=== PATIENT | female | born 1985 | race African-American/Black ===

== ENCOUNTER 2025-04-25 23:20 | Emergency (ER) | payer OTHER, MEDICAID ==
[~2025-04-25] VITALS: Ht 170.2 cm; Wt 69.0 kg
[2025-04-25 23:27] VITALS: TEMP 36.8; O2SAT 99
[2025-04-26 01:09] VITALS: TEMP 98.2
[2025-04-26] MEDS: ACETAMINOPHEN 325MG TABLET PO ONE (01:09)
[2025-04-26 02:00] LABS: TROPONIN I HIGH SENSITIVITY < 4 ng/L (3.0-34)
[2025-04-26 02:14] LABS: HCG SCREEN NEGATIVE
[2025-04-26] MEDS ORDERED: IBUP-1455 MT (02:26)
[2025-04-26] MEDS ORDERED: BACL-141 MT (02:26)
[2025-04-26 02:36] VITALS: BP 113/72; PULSE 83; RESP 14; O2SAT 95
[2025-04-26] MEDS: HYDROCODONE/ACETAMINOPHEN 5/325MG TABLET PO SCH (03:22)
== END 2025-04-26 03:49 | disposition home or self-care (01) ==
LOC: ER 23:20
DX: S13.4XXA Sprain of ligaments of cervical spine, initial encounter (principal); S80.12XA Contusion of left lower leg, initial encounter; S80.11XA Contusion of right lower leg, initial encounter; Z88.0 Allergy status to penicillin; Z91.018 Allergy to other foods; V89.2XXA Person injured in unspecified motor-vehicle accident, traffic, initial encounter; Y92.410 Unspecified street and highway as the place of occurrence of the external cause; Y93.89 Activity, other specified; Y99.8 Other external cause status
CPT/HCPCS: 36415; 71045; 73590; 84484; 84703; 93005; 99285

== ENCOUNTER 2025-05-05 20:51 | Emergency (ER) | payer OTHER, MEDICAID ==
[~2025-05-05] VITALS: Ht 162.6 cm; Wt 50.0 kg
[~2025-05-05 20:51] MED LIST: BACL-141 MT; IBUP-1455 MT
[2025-05-05 20:57] VITALS: O2SAT 100
[2025-05-05] MEDS: KETOROLAC 15MG/ML VIAL IM ONE (23:59)
[2025-05-05] MEDS: HYDROCODONE/ACETAMINOPHEN 7.5/325MG TABLET PO ONE (23:59)
[2025-05-05] MEDS: LIDOCAINE 5% PATCH TOP SCH (23:59)
[2025-05-06] MEDS ORDERED: NAPR-1176 MT (00:22)
[2025-05-06] MEDS ORDERED: LIDO-53 TP (00:22)
[2025-05-06] MEDS ORDERED: CYCL5TAB3 MT (00:24)
[2025-05-06 00:54] VITALS: BP 124/84; PULSE 73; RESP 16; TEMP 36.9; O2SAT 100
== END 2025-05-06 00:55 | disposition home or self-care (01) ==
LOC: ER 20:51
DX: F32.A Depression, unspecified (principal); R07.89 Other chest pain; Z79.1 Long term (current) use of non-steroidal anti-inflammatories (NSAID); Z79.899 Other long term (current) drug therapy; Z91.018 Allergy to other foods; Z88.0 Allergy status to penicillin; V49.9XXA Car occupant (driver) (passenger) injured in unspecified traffic accident, initial encounter; Y93.89 Activity, other specified; Y92.410 Unspecified street and highway as the place of occurrence of the external cause; Y99.8 Other external cause status
CPT/HCPCS: 96372; 99283; J1885; Z7610